=== PATIENT | female | born 1980 | race African-American/Black ===

== ENCOUNTER → 2020-07-25 | Outpatient (CLI) | payer OTHER ==
[~2020-07-25] MED LIST: COVID-19 VACC, MRNA(MODERNA)/PF 100 MCG/0.5 ML VIAL IM ONE
== END ==
LOC: VACCPMC 14:09
DX: Z23 Encounter for immunization (principal); Z20.828 Contact with and (suspected) exposure to other viral communicable diseases

== ENCOUNTER → 2020-08-27 | Outpatient (CLI) | payer OTHER | LOC: VACCPMC 10:34 | DX: Z23 Encounter for immunization (principal); Z20.822 Contact with and (suspected) exposure to COVID-19 ==

== ENCOUNTER → 2024-04-06 | Outpatient (REF) | payer BC | LOC: RAD 12:41 | PROVIDERS: ATTEND Physician Assistant | DX: R05.3 Chronic cough (principal) | CPT/HCPCS: 71046 ==